=== PATIENT | male | born 1995 | race Caucasian/White ===

== ENCOUNTER 2020-11-05 01:44 | Emergency (ER) | payer MEDICAID ==
[~2020-11-05] VITALS: Ht 170.2 cm; Wt 109.0 kg
[2020-11-05] MEDS ORDERED: KETOROLAC 30MG/ML VIAL IV STA (03:03)
[2020-11-05 03:25] LABS: HEMATOCRIT. 46.7 % (42.0-52.0); HEMOGLOBIN. 15.9 g/dL (14.0-18.0); MEAN CORPUSCULAR HEMOGLOBIN 31.6 pg (28.0-32.0); MEAN CORPUSCULAR VOLUME 92.8 fL (80.0-94.0); MEAN PLATELET VOLUME 8.4 fl (7.4-10.4); PLATELET 217 x1000/uL (130-400); RED BLOOD CELL COUNT 5.03 mill/uL (4.7-6.1); RED CELL DISTRIBUTION WIDTH 13.1 % (11.6-14.6)
[2020-11-05 03:53] LABS: ETHANOL BLOOD < 10 mg/dL
[2020-11-05 04:01] LABS: CHLORIDE 110 mEq/L (98-107)
[2020-11-05 04:42] LABS: PLATELET ESTIMATE NORMAL
[2020-11-05 05:05] LABS: CLARITY URINE CLEAR (CLEAR); COLOR URINE YELLOW (YELLOW); KETONES URINE TRACE (NEGATIVE); LEUKOCYTE ESTERASE URINE NEGATIVE (NEGATIVE); NITRITE URINE NEGATIVE (NEGATIVE); OCCULT BLOOD URINE 2+ (NEGATIVE); PH URINE 5.5 (4.5-8.0); PROTEIN URINE NEGATIVE (NEGATIVE); SPECIFIC GRAVITY URINE 1.027 (1.005-1.030)
[2020-11-05 05:15] LABS: *AMPHETAMINES SCREEN URINE NEGATIVE (NEGATIVE); *BARBITURATES SCREEN URINE NEGATIVE (NEGATIVE); *BENZODIAZEPINES SCREEN URINE NEGATIVE (NEGATIVE)
[2020-11-05 05:16] LABS: *COCAINE SCREEN URINE NEGATIVE (NEGATIVE); CANNABINOID URINE SCREEN NEGATIVE (NEGATIVE); METHADONE URINE SCREEN NEGATIVE (NEGATIVE); OPIATES URINE SCREEN NEGATIVE (NEGATIVE); PHENCYCLIDINE URINE SCREEN NEGATIVE (NEGATIVE)
[2020-11-05] MEDS ORDERED: CEPH250C2 MT (05:37)
[2020-11-05] MEDS ORDERED: IBUP-2029 MT (05:37)
[2020-11-05] MEDS ORDERED: CEFTRIAXONE 1 G PREMIX 50 ML IV NR (05:45)
[2020-11-05 06:21] VITALS: BP 136/73
== END 2020-11-05 06:24 | disposition home or self-care (01) ==
LOC: ER 01:44
DX: N20.0 Calculus of kidney (principal); D72.829 Elevated white blood cell count, unspecified; Z79.899 Other long term (current) drug therapy
CPT/HCPCS: 36415; 74176; 80053; 80305; 80320; 81003; 83690; 85025; 93005; 96365; 96375; 99285; J0696; J1885; G0480

== ENCOUNTER 2021-03-30 09:41 | Emergency (ER) | payer MEDICAID ==
[~2021-03-30] VITALS: Ht 167.6 cm; Wt 109.0 kg
[~2021-03-30 09:41] MED LIST: CEPH250C2 MT; IBUP-2029 MT
[2021-03-30] MEDS ORDERED: MORPHINE SULFATE 4 MG/ML CPJ (NOT FOR IM USE) IV STA (10:12)
[2021-03-30 10:51] LABS: BASOPHILS % 0.1 % (0.0-2.0); HEMATOCRIT. 46.4 % (42.0-52.0); HEMOGLOBIN. 16.1 g/dL (14.0-18.0); LYMPHOCYTES % 8.2 % (20.0-50.0); MEAN CORPUSCULAR HEMOGLOBIN 31.9 pg (28.0-32.0); MEAN CORPUSCULAR VOLUME 91.8 fL (80.0-94.0); MEAN PLATELET VOLUME 8.2 fl (7.4-10.4); MONOCYTES % 2.7 % (2.0-8.0); PLATELET 215 x1000/uL (130-400); RED BLOOD CELL COUNT 5.05 mill/uL (4.7-6.1); RED CELL DISTRIBUTION WIDTH 12.6 % (11.6-14.6)
[2021-03-30 10:58] LABS: CHLORIDE 107 mEq/L (98-107)
[2021-03-30] MEDS ORDERED: MORPHINE SULFATE 4 MG/ML CPJ (NOT FOR IM USE) IV ONE (11:45)
[2021-03-30] MEDS ORDERED: ONDANSETRON HCL 4MG/2ML INJ IV ONE (13:15)
[2021-03-30] MEDS ORDERED: T3 PO (13:41)
[2021-03-30] MEDS ORDERED: ONDA4TAB5 PO (13:41)
[2021-03-30 14:00] VITALS: BP 134/84
== END 2021-03-30 14:05 | disposition home or self-care (01) ==
LOC: ER 09:41
DX: N20.0 Calculus of kidney (principal); Z87.442 Personal history of urinary calculi
CPT/HCPCS: 36415; 74176; 76705; 80053; 83690; 85025; 85610; 96374; 96376; 99285; J2270; Z7610

== ENCOUNTER 2023-07-18 00:27 | Emergency (ER) | payer MEDICAID, OTHER ==
[~2023-07-18] VITALS: Ht 170.2 cm; Wt 110.8 kg
[~2023-07-18 00:27] MED LIST changes: +ONDA4TAB5 PO; +T3 PO
[2023-07-18 01:10] VITALS: TEMP 98.2; O2SAT 99
[2023-07-18 01:47] LABS: CLARITY URINE CLEAR (CLEAR); COLOR URINE YELLOW (YELLOW); GLUCOSE URINE NEGATIVE (NEGATIVE); KETONES URINE NEGATIVE (NEGATIVE); LEUKOCYTE ESTERASE URINE NEGATIVE (NEGATIVE); NITRITE URINE NEGATIVE (NEGATIVE); OCCULT BLOOD URINE NEGATIVE (NEGATIVE); PROTEIN URINE NEGATIVE (NEGATIVE); SPECIFIC GRAVITY URINE 1.002 (1.005-1.030); UROBILINOGEN URINE 0.2 E.U./dL (0.2-1.0)
[2023-07-18 01:47] LABS: BASOPHILS % 0.3 % (0.0-2.0); EOSINOPHILS % 0.1 % (0.0-5.0); HEMATOCRIT. 45.2 % (42.0-52.0); HEMOGLOBIN. 15.1 g/dL (14.0-18.0); LYMPHOCYTES % 22.7 % (20.0-50.0); MEAN CORPUSCULAR HEMOGLOBIN 30.2 pg (28.0-32.0); MEAN CORPUSCULAR HGB CONC 33.4 g/dL (31.0-37.0); MEAN CORPUSCULAR VOLUME 90.5 fL (80.0-94.0); MEAN PLATELET VOLUME 7.7 fl (7.4-10.4); MONOCYTES % 7.8 % (2.0-8.0); NEUTROPHILS % 69.1 % (40.0-76.0); PLATELET 282 x1000/uL (130-400); RED BLOOD CELL COUNT 4.99 mill/uL (4.7-6.1); RED CELL DISTRIBUTION WIDTH 12.9 % (11.6-14.6); WHITE BLOOD COUNT 10.4 x1000/uL (4.5-11.0)
[2023-07-18 01:52] LABS: CHLORIDE 107 mEq/L (98-107); INDEX HEMOLYSI 1 (1-3); INDEX ICTERIC 1 (1-4); INDEX LIPEMIC 1 (1-3); POTASSIUM 3.2 mEq/L (3.5-5.1); SODIUM 140 mEq/L (136-145)
[2023-07-18 02:01] LABS: ALANINE AMINOTRANSFERASE 63 IU/L (13-61); ALBUMIN 4.3 g/dL (3.4-5.0); ASPARTATE AMINOTRANSFERASE 17 IU/L (15-37); CALCIUM 9.1 mg/dL (8.5-10.1); CARBON DIOXIDE 25 mEq/L (21-32); GLUCOSE 125 mg/dL (70-105); PROTEIN TOTAL 8.7 g/dL (6.0-8.3); UREA NITROGEN BLOOD 9 mg/dL (7-21)
[2023-07-18] MEDS ORDERED: KETOROLAC 60MG/2ML VIAL IM ONE (02:15)
[2023-07-18 02:32] VITALS: BP 130/65; PULSE 130; RESP 18
[2023-07-18] MEDS ORDERED: METR-167 MT (04:49)
[2023-07-18] MEDS ORDERED: AMOX1TAB16 MT (04:49)
== END 2023-07-18 05:12 | disposition home or self-care (01) ==
LOC: ER 00:27
DX: K52.9 Noninfective gastroenteritis and colitis, unspecified (principal); Z87.442 Personal history of urinary calculi
CPT/HCPCS: 36415; 74176; 80053; 81003; 85025; 93005; 99285